=== PATIENT | male | born 1960 | race African-American/Black ===

== ENCOUNTER 2016-11-22 13:10 | Inpatient (IN) | payer OTHER ==
[2016-11-22 14:06] VITALS: BMI 27.9
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
[2016-11-22] MEDS ORDERED: NICOTINE POLACRILEX 4 MG GUM BUC PRN (14:55)
[2016-11-22] MEDS ORDERED: MAGNESIUM CITRATE 300 ML BOTTLE PO PRN (14:55)
[2016-11-22] MEDS ORDERED: diphenhydrAMINE HCL 50 MG CAPSULE PO PRN (14:55)
[2016-11-22] MEDS ORDERED: LOPERAMIDE HCL 2 MG CAPSULE PO PRN (14:55)
[2016-11-22] MEDS ORDERED: MENTHOL/PHENOL 1 EACH UD MM PRN (14:55)
[2016-11-22] MEDS ORDERED: MAG HYDROX/AL HYDROX/SIMETH 30 ML UNIT-DOSE CUP PO PRN (14:55)
[2016-11-22] MEDS ORDERED: IBUPROFEN 400 MG TABLET (FP) PO PRN (14:55)
[2016-11-22] MEDS ORDERED: ACETAMINOPHEN 325 MG TABLET (FP) PO PRN (14:55)
[2016-11-22] MEDS ORDERED: chlordiazePOXIDE HCL 25 MG CAPSULE PO PRN (14:55)
[2016-11-22] MEDS ORDERED: MAGNESIUM HYDROX 2400MG/30ML ORAL SUSPENSION 30 ML CUP PO PRN (14:55)
[2016-11-22] MEDS ORDERED: P-EPHED 60MG/TRIPROLIDI 2.5MG TABLET PO PRN (14:55)
[2016-11-22] MEDS ORDERED: hydrOXYzine PAMOATE 50 MG CAPSULE (FP) PO PRN (14:55)
[2016-11-22] MEDS ORDERED: guaiFENesin/D-METHORPHAN HB 10 ML UNIT-DOSE CUPS PO PRN (14:55)
[2016-11-22] MEDS ORDERED: chlordiazePOXIDE HCL 25 MG CAPSULE PO ONE (15:35)
[2016-11-22] MEDS: chlordiazePOXIDE HCL 25 MG CAPSULE PO SCH ×2 (16:47→22:06)
[2016-11-22] MEDS: THIAMINE HCL 100 MG TABLET (FP) PO SCH (22:06)
[2016-11-22] MEDS: TRIAMCINOLONE ACET 0.1% OINT 15 GM TUBE TP SCH (22:07)
[2016-11-22 22:28] LABS: URINE APPEARANCE CLEAR; URINE BILIRUBIN NEGATIVE (NEGATIVE); URINE BLOOD NEGATIVE (NEGATIVE); URINE COLOR LTYELLOW; URINE GLUCOSE (UA) NEGATIVE (NEGATIVE); URINE KETONE NEGATIVE (NEGATIVE); URINE LEUK ESTERASE NEGATIVE (NEGATIVE); URINE NITRITE NEGATIVE (NEGATIVE); URINE PROTEIN NEGATIVE (NEGATIVE); URINE UROBILINOGEN NEGATIVE mg/dL (0.2-1.0)
[2016-11-23] MEDS: chlordiazePOXIDE HCL 25 MG CAPSULE PO SCH ×4 (05:48→22:06)
[2016-11-23] MEDS: TRIAMCINOLONE ACET 0.1% OINT 15 GM TUBE TP SCH ×3 (07:25→22:07)
--- NOTE | 2016-11-23 09:37 | EKG ---
Test Reason : Blood Pressure : / mmHG Vent. Rate : 067 BPM Atrial Rate : 067 BPM P-R Int : 170 ms QRS Dur : 108 ms QT Int : 408 ms P-R-T Axes : 070 008 023 degrees QTc Int : 431 ms SINUS RHYTHM WITH PREMATURE ATRIAL COMPLEXES IN A PATTERN OF BIGEMINY POSSIBLE LEFT ATRIAL ENLARGEMENT NON-SPECIFIC INTRA-VENTRICULAR CONDUCTION DELAY NO PREVIOUS ECGS AVAILABLE Confirmed by TERESITA LÓPEZ, ROHINI ([id number]) on 11/23/2016 9:37:39 AM Referred By: Yuri Ferrari Confirmed By:ROHINI LO MD
[2016-11-23 10:07] LABS: ALBUMIN 3.4 g/dl (3.4-5.0); ANION GAP 8 (8-16); CALCIUM 8.3 mg/dL (8.5-10.1); CO2 28 mmol/L (21-32); GLUCOSE,RANDOM 76 mg/dL (74-106); SGOT/AST 24 U/L (15-37)
[2016-11-23 10:09] LABS: ALK PHOS 76 U/L (45-117); BILIRUBIN,TOTAL 0.5 mg/dL (0.2-1.0); SGPT/ALT 22 U/L (12-78); TOT PROT 6.3 g/dl (6.4-8.2)
[2016-11-23 10:14] LABS: MCH 30.4 pg (25.7-33.7); MCHC 33.1 g/dl (32.0-35.9); MEAN CELL VOLUME 91.8 fl (80-96); MEAN PLT VOLUME 7.9 fl (7.5-11.1); PLATELET COUNT 227 K/MM3 (134-434); RDW 14.3 % (11.9-15.9); WHITE BLOOD COUNT 7.9 K/mm3 (4.0-10.0)
[2016-11-23] MEDS: PANTOPRAZOLE 40 MG TABLET (FP) PO SCH (10:35)
[2016-11-23] MEDS: PRENATAL VITAMINS W/ FOLIC ACID TABLET (FP) PO SCH (10:35)
[2016-11-23] MEDS: NICOTINE 21 MG/24 HOURS TOPICAL PATCH TD SCH (10:36)
--- NOTE | 2016-11-23 11:18 | PN ---
S CIWA - CIWA Score Nausea/Vomitin Muscle Tremors: 3 Anxiety: 3 Agitation: 2 Paroxysmal Sweats: 1-Minimal Palms Moist Orientation: 0-Oriented Tacttile Disturbances: 1-Very Mild Itch/Numbness Auditory Disturbances: 1-Very Mild Visual Disturbances: 0-None Headache: 2-Mild CIWA-Ar Total Score: 16 BHS Progress Note (SOAP) Subjective: alert,irritable,anxious,interrupted sleep,tremor Objective: 11/23/16 11:15 Vital Signs Temperature 97.9 F 11/23/16 10:14 Pulse Rate 77 11/23/16 10:14 Respiratory Rate 18 11/23/16 10:14 Blood Pressure 131/91 11/23/16 10:14 O2 Sat by Pulse Oximetry (%) ekg nsr with pac Laboratory Last Values WBC 7.9 K/mm3 (4.0-10.0) 11/23/16 07:00 RBC 4.27 M/mm3 (4.00-5.60) 11/23/16 07:00 Hgb 13.0 GM/dL (11.7-16.9) 11/23/16 07:00 Hct 39.1 % (35.4-49) 11/23/16 07:00 MCV 91.8 fl (80-96) 11/23/16 07:00 MCH 30.4 pg (25.7-33.7) 11/23/16 07:00 MCHC 33.1 g/dl (32.0-35.9) 11/23/16 07:00 RDW 14.3 % (11.9-15.9) 11/23/16 07:00 Plt Count 227 K/MM3 (134-434) 11/23/16 07:00 MPV 7.9 fl (7.5-11.1) 11/23/16 07:00 Sodium 140 mmol/L (136-145) 11/23/16 07:00 Potassium 4.0 mmol/L (3.5-5.1) 11/23/16 07:00 Chloride 104 mmol/L (98-107) 11/23/16 07:00 Carbon Dioxide 28 mmol/L (21-32) 11/23/16 07:00 Anion Gap 8 (8-16) 11/23/16 07:00 BUN 10 mg/dL (7-18) D 11/23/16 07:00 Creatinine 1.0 mg/dL (0.7-1.3) 11/23/16 07:00 Creat Clearance w eGFR > 60 (>60) 11/23/16 07:00 Random Glucose 76 mg/dL (74-106) 11/23/16 07:00 Calcium 8.3 mg/dL (8.5-10.1) L 11/23/16 07:00 Total Bilirubin 0.5 mg/dL (0.2-1.0) 11/23/16 07:00 AST 24 U/L (15-37) 11/23/16 07:00 ALT 22 U/L (12-78) 11/23/16 07:00 Alkaline Phosphatase 76 U/L (45-117) 11/23/16 07:00 Total Protein 6.3 g/dl (6.4-8.2) L 11/23/16 07:00 Albumin 3.4 g/dl (3.4-5.0) 11/23/16 07:00 Urine Color Ltyellow 11/22/16 16:16 Urine Appearance Clear 11/22/16 16:16 Urine pH 5.0 (5.0-8.0) 11/22/16 16:16 Urine Protein Negative (NEGATIVE) 11/22/16 16:16 Urine Glucose (UA) Negative (NEGATIVE) 11/22/16 16:16 Urine Ketones Negative (NEGATIVE) 11/22/16 16:16 Urine Blood Negative (NEGATIVE) 11/22/16 16:16 Urine Nitrite Negative (NEGATIVE) 11/22/16 16:16 Urine Bilirubin Negative (NEGATIVE) 11/22/16 16:16 Urine Urobilinogen Negative mg/dL (0.2-1.0) 11/22/16 16:16 Ur Leukocyte Esterase Negative (NEGATIVE) 11/22/16 16:16 Assessment: 11/23/16 11:17 withdrawal symptom Plan: continue detox
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
[2016-11-23] MEDS: ARIPiprazole 10 MG TABLET PO SCH (22:06)
[2016-11-23] MEDS: THIAMINE HCL 100 MG TABLET (FP) PO SCH (22:06)
[2016-11-23] MEDS: ZOLPIDEM TARTRATE 10 MG TABLET (PARK CARE ONLY) PO PRN (22:06)
[2016-11-24] MEDS: TRIAMCINOLONE ACET 0.1% OINT 15 GM TUBE TP SCH ×3 (06:16→22:25)
[2016-11-24] MEDS: chlordiazePOXIDE HCL 25 MG CAPSULE PO SCH ×2 (06:16→10:25)
--- NOTE | 2016-11-24 09:44 | PN ---
S CIWA - CIWA Score Nausea/Vomitin-No Nausea/No Vomiting Muscle Tremors: 4-Moderate,w/Arms Extend Anxiety: 4-Mod. Anxious/Guarded Agitation: 3 Paroxysmal Sweats: 3 Orientation: 0-Oriented Tacttile Disturbances: 0-None Auditory Disturbances: 0-None Visual Disturbances: 0-None Headache: 0-None Present CIWA-Ar Total Score: 14 BHS Progress Note (SOAP) Subjective: Anxiety,tremors,sweating,interrupted sleep,restless Objective: 11/24/16 09:43 Vital Signs - 8 hr 11/24/16 11/24/16 03:30 06:00 Temperature 97.9 F Pulse Rate 55 L Respiratory 18 18 Rate Blood Pressure 142/86 Laboratory Tests 11/22/16 11/23/16 11/23/16 16:16 07:00 07:00 WBC 7.9 RBC 4.27 Hgb 13.0 Hct 39.1 MCV 91.8 MCH 30.4 MCHC 33.1 RDW 14.3 Plt Count 227 MPV 7.9 Sodium 140 Potassium 4.0 Chloride 104 Carbon Dioxide 28 Anion Gap 8 BUN 10 D Creatinine 1.0 Creat Clearance w eGFR > 60 Random Glucose 76 Calcium 8.3 L Total Bilirubin 0.5 AST 24 ALT 22 Alkaline Phosphatase 76 Total Protein 6.3 L Albumin 3.4 Urine Color Ltyellow Urine Appearance Clear Urine pH 5.0 Ur Specific Unity 1.015 Urine Protein Negative Urine Glucose (UA) Negative Urine Ketones Negative Urine Blood Negative Urine Nitrite Negative Urine Bilirubin Negative Urine Urobilinogen Negative Ur Leukocyte Esterase Negative RPR Titer 11/23/16 07:00 WBC RBC Hgb Hct MCV MCH MCHC RDW Plt Count MPV Sodium Potassium Chloride Carbon Dioxide Anion Gap BUN Creatinine Creat Clearance w eGFR Random Glucose Calcium Total Bilirubin AST ALT Alkaline Phosphatase Total Protein Albumin Urine Color Urine Appearance Urine pH Ur Specific Unity Urine Protein Urine Glucose (UA) Urine Ketones Urine Blood Urine Nitrite Urine Bilirubin Urine Urobilinogen Ur Leukocyte Esterase RPR Titer Nonreactive labs noted Assessment: 11/24/16 09:43 Withdrawal sx. Plan: Continue detox
[2016-11-24] MEDS ORDERED: CITALOPRAM HYDROBROMIDE 20 MG TABLET (FP) PO SCH (10:00)
[2016-11-24] MEDS: PANTOPRAZOLE 40 MG TABLET (FP) PO SCH (10:25)
[2016-11-24] MEDS: PRENATAL VITAMINS W/ FOLIC ACID TABLET (FP) PO SCH (10:25)
[2016-11-24] MEDS: CITALOPRAM HYDROBROMIDE 10 MG TABLET (FP) PO SCH (10:25)
[2016-11-24] MEDS: NICOTINE 21 MG/24 HOURS TOPICAL PATCH TD SCH (10:26)
[2016-11-24] MEDS: chlordiazePOXIDE 5 MG CAPSULE PO SCH ×2 (17:29→22:24)
[2016-11-24] MEDS: THIAMINE HCL 100 MG TABLET (FP) PO SCH (22:24)
[2016-11-24] MEDS: ARIPiprazole 10 MG TABLET PO SCH (22:24)
[2016-11-24] MEDS: ZOLPIDEM TARTRATE 10 MG TABLET (PARK CARE ONLY) PO PRN (22:24)
[2016-11-25] MEDS: chlordiazePOXIDE 5 MG CAPSULE PO SCH ×2 (05:48→10:42)
[2016-11-25] MEDS: TRIAMCINOLONE ACET 0.1% OINT 15 GM TUBE TP SCH ×3 (07:47→22:26)
[2016-11-25] MEDS: NICOTINE 21 MG/24 HOURS TOPICAL PATCH TD SCH (10:30)
[2016-11-25] MEDS: CITALOPRAM HYDROBROMIDE 10 MG TABLET (FP) PO SCH (10:42)
[2016-11-25] MEDS: PANTOPRAZOLE 40 MG TABLET (FP) PO SCH (10:42)
[2016-11-25] MEDS: PRENATAL VITAMINS W/ FOLIC ACID TABLET (FP) PO SCH (10:42)
--- NOTE | 2016-11-25 15:27 | PN ---
BHS Progress Note (SOAP) Subjective: Sweating,interrupted sleep,restless Objective: 11/25/16 15:26 Vital Signs - 8 hr 11/25/16 11/25/16 10:00 14:33 Temperature 96.8 F L 96.7 F L Pulse Rate 63 66 Respiratory 18 20 Rate Blood Pressure 151/99 143/95 Laboratory Last Values WBC 7.9 K/mm3 (4.0-10.0) 11/23/16 07:00 RBC 4.27 M/mm3 (4.00-5.60) 11/23/16 07:00 Hgb 13.0 GM/dL (11.7-16.9) 11/23/16 07:00 Hct 39.1 % (35.4-49) 11/23/16 07:00 MCV 91.8 fl (80-96) 11/23/16 07:00 MCH 30.4 pg (25.7-33.7) 11/23/16 07:00 MCHC 33.1 g/dl (32.0-35.9) 11/23/16 07:00 RDW 14.3 % (11.9-15.9) 11/23/16 07:00 Plt Count 227 K/MM3 (134-434) 11/23/16 07:00 MPV 7.9 fl (7.5-11.1) 11/23/16 07:00 Sodium 140 mmol/L (136-145) 11/23/16 07:00 Potassium 4.0 mmol/L (3.5-5.1) 11/23/16 07:00 Chloride 104 mmol/L (98-107) 11/23/16 07:00 Carbon Dioxide 28 mmol/L (21-32) 11/23/16 07:00 Anion Gap 8 (8-16) 11/23/16 07:00 BUN 10 mg/dL (7-18) D 11/23/16 07:00 Creatinine 1.0 mg/dL (0.7-1.3) 11/23/16 07:00 Creat Clearance w eGFR > 60 (>60) 11/23/16 07:00 Random Glucose 76 mg/dL (74-106) 11/23/16 07:00 Calcium 8.3 mg/dL (8.5-10.1) L 11/23/16 07:00 Total Bilirubin 0.5 mg/dL (0.2-1.0) 11/23/16 07:00 AST 24 U/L (15-37) 11/23/16 07:00 ALT 22 U/L (12-78) 11/23/16 07:00 Alkaline Phosphatase 76 U/L (45-117) 11/23/16 07:00 Total Protein 6.3 g/dl (6.4-8.2) L 11/23/16 07:00 Albumin 3.4 g/dl (3.4-5.0) 11/23/16 07:00 Urine Color Ltyellow 11/22/16 16:16 Urine Appearance Clear 11/22/16 16:16 Urine pH 5.0 (5.0-8.0) 11/22/16 16:16 Ur Specific Hunt 1.015 (1.005-1.025) 11/22/16 16:16 Urine Protein Negative (NEGATIVE) 11/22/16 16:16 Urine Glucose (UA) Negative (NEGATIVE) 11/22/16 16:16 Urine Ketones Negative (NEGATIVE) 11/22/16 16:16 Urine Blood Negative (NEGATIVE) 11/22/16 16:16 Urine Nitrite Negative (NEGATIVE) 11/22/16 16:16 Urine Bilirubin Negative (NEGATIVE) 11/22/16 16:16 Urine Urobilinogen Negative mg/dL (0.2-1.0) 11/22/16 16:16 Ur Leukocyte Esterase Negative (NEGATIVE) 11/22/16 16:16 RPR Titer Nonreactive (NONREACTIVE) 11/23/16 07:00 labs noted Assessment: 11/25/16 15:26 Withdrawal sx. Plan: Continue detox
[2016-11-25] MEDS: chlordiazePOXIDE HCL 10 MG CAPSULE PO SCH ×2 (17:44→22:26)
[2016-11-25] MEDS ORDERED: ARIPiprazole 5 MG TABLET (FP) ONE (21:35)
[2016-11-25 21:36] VITALS: TEMP 97.7
[2016-11-25] MEDS: ZOLPIDEM TARTRATE 10 MG TABLET (PARK CARE ONLY) PO PRN (22:26)
[2016-11-25] MEDS: THIAMINE HCL 100 MG TABLET (FP) PO SCH (22:26)
[2016-11-25] MEDS: ARIPiprazole 10 MG TABLET PO SCH (22:26)
[2016-11-26] MEDS: chlordiazePOXIDE HCL 10 MG CAPSULE PO SCH (05:54)
[2016-11-26 06:29] VITALS: BP 138/91; PULSE 51
[2016-11-26] MEDS: TRIAMCINOLONE ACET 0.1% OINT 15 GM TUBE TP SCH (06:50)
--- NOTE | 2016-11-26 08:43 | DS ---
[facility] Detox Discharge Summary Admission Date: 11/22/16 Discharge Date: 11/26/16 - History Present History: Alcohol Dependence, Cocaine Dependence Pertinent Past History: GERD BLINDNESS OF THE LEFT EYE POST TRAUMA BIPOLAR DISORDER - Physical Exam Results Vital Signs: Vital Signs Temperature 97.7 F 11/26/16 06:00 Pulse Rate 51 L 11/26/16 06:00 Respiratory Rate 18 11/26/16 06:00 Blood Pressure 138/91 11/26/16 06:00 O2 Sat by Pulse Oximetry (%) Pertinent Admission Physical Exam Findings: WITHDRAWAL SYMPTOM - Treatment Hospital Course: Detox Protocol Followed, Detoxed Safely, Responded well, Discharged Condition Good Patient has Accepted a Rehab Referral to: DECL[facility]ED - Medication Discharge Medications: Ambulatory Orders Aripiprazole [Abilify -] 30 mg PO HS 08/10/13 Omeprazole [Prilosec (RX)] 40 mg PO DAILY #30 capsule. 08/19/13 Citalopram Hydrobromide [Celexa -] 20 mg PO DAILY #30 tablet 02/24/16 Cyclobenzaprine HCl [Flexeril -] 10 mg PO DAILY 11/22/16 Triamcinolone Acetonide 15 gm TP TID 11/22/16 - Diagnosis (1) Alcohol dependence with uncomplicated withdrawal Current Visit: Yes Status: Acute (2) Cocaine dependence Current Visit: Yes Status: Chronic (3) Gastroesophageal reflux disease Current Visit: Yes Status: Chronic Qualifiers: Esophagitis presence: without esophagitis Qualified Code(s): K21.9 - Gastro-esophageal reflux disease without esophagitis (4) Essential hypertension Current Visit: Yes Status: Chronic (5) Blindness of left eye Current Visit: Yes Status: Acute
== END 2016-11-26 09:22 | disposition home or self-care (01) | DRG 774 ==
LOC: YASAS 13:10 → Y6N 15:28
PROVIDERS: ADMIT Internal Medicine; ATTEND Internal Medicine
PROC: HZ2ZZZZ Detoxification Services for Substance Abuse Treatment (ICD-10-PCS; principal; 2016-11-22)
DX: F10.230 Alcohol dependence with withdrawal, uncomplicated (principal); F14.20 Cocaine dependence, uncomplicated; F17.210 Nicotine dependence, cigarettes, uncomplicated; F19.24 Other psychoactive substance dependence with psychoactive substance-induced mood disorder; F31.9 Bipolar disorder, unspecified; I10 Essential (primary) hypertension; K21.9 Gastro-esophageal reflux disease without esophagitis; H54.42 Blindness, left eye, normal vision right eye; G47.00 Insomnia, unspecified
CPT/HCPCS: 36415; 80053; 81003; 85027; 86593; 93005; 93010